=== PATIENT | female | born 1950 | race Caucasian/White ===

== ENCOUNTER 2020-09-01 13:53 | Emergency (ER) | payer MEDICARE, OTHER ==
--- NOTE | 2020-09-01 15:21 | EDM.PDOC ---
ED HPI GENERAL MEDICAL PROBLEM - General Chief Complaint: Back Pain or Injury Stated Complaint: [id number] BACK PAIN Time Seen by Provider: 09/01/20 15:16 Source of Information: Reports: Patient, Family, RN, RN Notes Reviewed History Limitations: Reports: No Limitations - History of Present Illness INITIAL COMMENTS - FREE TEXT/NARRATIVE: Pt presents to ER via POV with c/o flare up of chronic low back pain. Pt states that approximately a month ago she had surgery to "burn nerves" in her back to try to help and alleviate her chronic back pain. Pt states that today it hurts worse than it ever has before. Pt states that she is prescribed [place] 5/325 and takes it as prescribed with little to no relief. Pt is also on Gabapentin. Pt denies any new or recent trauma to the area. Spouse states that pt was feeling better when she took a steroid, which was about 3 weeks ago. Denies radiating pain, saddle area numbness, loss of bowel or bladder control, or motor weakness. Duration: Chronic, Getting Worse Location: Reports: Back Quality: Reports: Same as Previous Episode Severity: Severe Improves with: Reports: None Worsens with: Reports: Movement Associated Symptoms: Reports: No Other Symptoms Treatments [employer]: Reports: Other Medication(s) Lower Back Pain Score (Numeric/FACES): 10 - Related Data Allergies Allergy/AdvReac Type Severity Reaction Status Date / Time mirtazapine [From Remeron] Allergy Cannot Verified 09/01/20 14:33 Remember tetanus and diphtheria Allergy Cannot Verified 09/01/20 14:33 toxoids Remember Home Meds: Home Meds Gabapentin [Neurontin] 09/01/20 [History] Past Medical History Cardiovascular History: Reports: Hypertension Musculoskeletal History: Reports: Back Pain, Chronic Psychiatric History: Reports: Depression - Past Surgical History Musculoskeletal Surgical History: Reports: Other (See Below) Other Musculoskeletal Surgeries/Procedures:: Back surgery x2. "burnt nerves in back". Social & Family History - Tobacco Use Tobacco Use Status *Q: Never Tobacco User Second Hand Smoke Exposure: No - Caffeine Use Caffeine Use: Reports: Coffee - Recreational Drug Use Recreational Drug Use: No - Living Situation & Occupation Living situation: Reports: , with Spouse Occupation: Retired ED ROS GENERAL - Review of Systems Review Of Systems: Comprehensive ROS is negative, except as noted in HPI. ED EXAM,LOWER BACK PAIN/INJURY - Physical Exam Exam: See Below Exam Limited By: No Limitations General Appearance: Alert, WD/WN, No Apparent Distress, Other (Tearful) Throat/Mouth: Normal Voice, No Airway Compromise Head: Atraumatic, Normocephalic Neck: Normal Inspection Respiratory/Chest: No Respiratory Distress Cardiovascular: Regular Rate, Rhythm GI/Abdominal: Normal Bowel Sounds, Soft, Non-Tender Back Exam: Decreased Range of Motion, Paraspinal Tenderness, Vertebral Tenderness. No: CVA Tenderness (L), CVA Tenderness (R) Extremities: Normal Inspection, Normal Range of Motion, Non-Tender, No Pedal Edema, Normal Capillary Refill Neurological: Alert, Normal Mood/Affect, Normal Dorsiflexion, Normal Plantar Flexion, No Motor/Sensory Deficits, Oriented x 3 Psychiatric: Anxious, Depressed Mood Skin Exam: Warm, Dry, Intact, Normal Color, No Rash Course - Vital Signs Last Recorded V/S: Last Vital Signs Temp 98.2 F 09/01/20 14:33 Pulse 71 09/01/20 14:33 Resp 20 09/01/20 14:33 BP 188/76 H 09/01/20 14:33 Pulse Ox 100 09/01/20 14:33 - Orders/Labs/Meds Meds: Medications Discontinued Medications Generic Name Dose Route Start Last Admin Trade Name Freq PRN Reason Stop Dose Admin Hydromorphone HCl 1 mg 09/01/20 15:37 Hydromorphone 1 Mg/Ml Syringe IM 09/01/20 15:38 ONETIME ONE Methylprednisolone Sodium Succinate 125 mg 09/01/20 15:36 Methylprednisolone Sodium Succinate 125 Mg/2 Ml Sdv IM 09/01/20 15:37 ONETIME ONE - Re-Assessments/Exams Free Text/Narrative Re-Assessment/Exam: 09/01/20 15:40 Pt with low back pain x30+ years. No new injury, no radiating pain, no findings or Hx to suggest cord compromise. Plan to treat pt symptomatically and advise her to f/u with her doctor in [place] this week. Departure - Departure Time of Disposition: 15:41 Disposition: Home, Self-Care 01 Condition: Fair Clinical Impression: Acute exacerbation of chronic low back pain - Discharge Information *PRESCRIPTION DRUG MONITORING PROGRAM REVIEWED*: No *COPY OF PRESCRIPTION DRUG MONITORING REPORT IN PATIENT REUBEN: No Instructions: Chronic Back Pain Forms: ED Department Discharge Additional Instructions: Rx: Medrol Dose Ming (take with food). Follow up with your doctor in [place] this coming week for ongoing pain management. Sepsis Event Note (ED) - Evaluation Sepsis Screening Result: No Definite Risk - Focused Exam Vital Signs: Vital Signs Temp Pulse Resp BP Pulse Ox 09/01/20 14:33 98.2 F 71 20 188/76 H 100
[2020-09-01] MEDS ORDERED: methylPREDNISolone Sodium Succinate 125 MG/2 ML SDV IM ONE (15:36)
[2020-09-01] MEDS ORDERED: HYDROmorphone 1 MG/ML Syringe IM ONE (15:37)
== END 2020-09-01 16:05 | disposition home or self-care (01) ==
LOC: DL.ED 13:53
DX: M54.5 Low back pain (principal); G89.29 Other chronic pain; I10 Essential (primary) hypertension; Z88.7 Allergy status to serum and vaccine; Z88.8 Allergy status to other drugs, medicaments and biological substances
CPT/HCPCS: 96372; 99283; J1170; J2930